=== PATIENT | female | born 1950 | race Caucasian/White ===

== ENCOUNTER 2017-01-31 13:25 | Outpatient (CLI) ==
[2015-02-12 12:35] VITALS: BMI 24.0
== END 2017-01-31 13:26 | disposition home or self-care (01) ==
LOC: CAR 13:25
PROVIDERS: ATTEND Internal Medicine
DX: C34.90 Malignant neoplasm of unspecified part of unspecified bronchus or lung (principal); J44.9 Chronic obstructive pulmonary disease, unspecified; R06.02 Shortness of breath; I10 Essential (primary) hypertension

== ENCOUNTER 2017-03-28 12:36 | Outpatient (RCR) ==
[2015-02-12 12:35] VITALS: BMI 24.0
[2017-04-25 14:17] VITALS: BP 132/58
== END 2017-04-25 ==
LOC: PUL.REHAB 12:36
PROVIDERS: ATTEND Internal Medicine
DX: C34.90 Malignant neoplasm of unspecified part of unspecified bronchus or lung (principal); J44.9 Chronic obstructive pulmonary disease, unspecified; R06.02 Shortness of breath; I10 Essential (primary) hypertension

== ENCOUNTER 2017-04-28 08:04 | Outpatient (RCR) ==
[2015-02-12 12:35] VITALS: BMI 24.0
[2017-05-23 14:36] VITALS: BP 118/60
== END 2017-05-26 ==
LOC: PUL.REHAB 08:04
PROVIDERS: ATTEND Internal Medicine
DX: C34.90 Malignant neoplasm of unspecified part of unspecified bronchus or lung (principal); J44.9 Chronic obstructive pulmonary disease, unspecified; R06.02 Shortness of breath; I10 Essential (primary) hypertension

== ENCOUNTER 2017-05-27 07:22 | Outpatient (RCR) ==
[2015-02-12 12:35] VITALS: BMI 24.0
[2017-06-20 14:32] VITALS: BP 106/52
== END 2017-06-26 ==
LOC: PUL.REHAB 07:22
PROVIDERS: ATTEND Internal Medicine
DX: J44.9 Chronic obstructive pulmonary disease, unspecified (principal); R06.02 Shortness of breath; C34.90 Malignant neoplasm of unspecified part of unspecified bronchus or lung; I10 Essential (primary) hypertension

== ENCOUNTER 2017-06-27 07:50 | Outpatient (RCR) ==
[2015-02-12 12:35] VITALS: BMI 24.0
[2017-07-22 14:15] VITALS: BP 138/58
== END 2017-07-26 ==
LOC: PUL.REHAB 07:50
PROVIDERS: ATTEND Internal Medicine
DX: C34.90 Malignant neoplasm of unspecified part of unspecified bronchus or lung (principal); J44.9 Chronic obstructive pulmonary disease, unspecified; R06.02 Shortness of breath; I10 Essential (primary) hypertension

== ENCOUNTER 2017-08-05 12:34 | Outpatient (CLI) | payer OTHER ==
[2015-02-12 12:35] VITALS: BMI 24.0
--- NOTE | 2017-08-06 11:46 | MAMMO ---
EXAM: Digital screening mammogram with tomosynthesis HISTORY: Screening COMPARISON: 02/08/2015 FINDINGS: Digital MLO and CC views of the right and left breast were performed. Computer aided det ection was utilized. Tomosynthesis was performed. There are scattered fibroglandular densities. Sc attered bilateral benign calcifications. There is no evidence for mass, asymmetry, distortion, or najera spicious calcifications in either breast. IMPRESSION: 1. No evidence of malignancy in the right or left breast. 2. Annual screening mammogram is recommended in one year. BIRADS category 2, benign
== END 2017-08-05 12:35 | disposition home or self-care (01) ==
LOC: RAD 12:34
PROVIDERS: ATTEND Internal Medicine
DX: Z12.31 Encounter for screening mammogram for malignant neoplasm of breast (principal)
CPT/HCPCS: 77067

== ENCOUNTER 2017-08-27 09:02 | Outpatient (RCR) ==
[2015-02-12 12:35] VITALS: BMI 24.0
[2017-09-09 14:28] VITALS: BP 128/60
== END 2017-09-25 ==
LOC: PUL.REHAB 09:02
PROVIDERS: ATTEND Internal Medicine
DX: C34.90 Malignant neoplasm of unspecified part of unspecified bronchus or lung (principal); J44.9 Chronic obstructive pulmonary disease, unspecified; R06.02 Shortness of breath; I10 Essential (primary) hypertension

== ENCOUNTER 2017-09-26 07:05 | Outpatient (RCR) ==
[2015-02-12 12:35] VITALS: BMI 24.0
[2017-10-17 09:40] VITALS: BP 128/60
== END 2017-10-26 ==
LOC: PUL.REHAB 07:05
PROVIDERS: ATTEND Internal Medicine
DX: C34.90 Malignant neoplasm of unspecified part of unspecified bronchus or lung (principal); J44.9 Chronic obstructive pulmonary disease, unspecified; I10 Essential (primary) hypertension; R06.02 Shortness of breath

== ENCOUNTER 2017-10-28 07:28 | Outpatient (RCR) ==
[2015-02-12 12:35] VITALS: BMI 24.0
== END 2017-10-28 07:50 | disposition home or self-care (01) ==
LOC: PUL.REHAB 07:28
PROVIDERS: ATTEND Internal Medicine
DX: C34.90 Malignant neoplasm of unspecified part of unspecified bronchus or lung (principal); J44.9 Chronic obstructive pulmonary disease, unspecified; R06.02 Shortness of breath; I10 Essential (primary) hypertension

== ENCOUNTER 2017-10-29 11:15 | Outpatient (RCR) | payer OTHER ==
[2015-02-12 12:35] VITALS: BMI 24.0
[2017-11-24 09:55] VITALS: BP 126/52
== END 2017-11-26 ==
LOC: PUL.REHAB 11:15
PROVIDERS: ATTEND Internal Medicine
DX: J44.9 Chronic obstructive pulmonary disease, unspecified (principal)
CPT/HCPCS: 93797

== ENCOUNTER 2017-11-27 06:43 | Outpatient (RCR) ==
[2015-02-12 12:35] VITALS: BMI 24.0
[2017-12-19 11:01] VITALS: BP 132/56
== END 2017-12-24 ==
LOC: PUL.REHAB 06:43
PROVIDERS: ATTEND Internal Medicine
DX: C34.90 Malignant neoplasm of unspecified part of unspecified bronchus or lung (principal); J44.9 Chronic obstructive pulmonary disease, unspecified; I10 Essential (primary) hypertension; R06.02 Shortness of breath

== ENCOUNTER 2017-12-25 08:26 | Outpatient (RCR) ==
[2015-02-12 12:35] VITALS: BMI 24.0
[2018-01-16 14:19] VITALS: BP 116/54
== END 2018-01-24 ==
LOC: PUL.REHAB 08:26
PROVIDERS: ATTEND Internal Medicine
DX: J44.9 Chronic obstructive pulmonary disease, unspecified (principal)

== ENCOUNTER 2018-01-26 07:07 | Outpatient (RCR) ==
[2015-02-12 12:35] VITALS: BMI 24.0
[2018-02-20 11:06] VITALS: BP 138/58
== END 2018-02-23 23:59 ==
LOC: PUL.REHAB 07:07
PROVIDERS: ATTEND Internal Medicine
DX: C34.90 Malignant neoplasm of unspecified part of unspecified bronchus or lung (principal); J44.9 Chronic obstructive pulmonary disease, unspecified; R06.02 Shortness of breath; I10 Essential (primary) hypertension

== ENCOUNTER 2018-02-06 12:36 | Outpatient (CLI) | payer OTHER ==
[2015-02-12 12:35] VITALS: BMI 24.0
== END 2018-02-06 12:37 | disposition home or self-care (01) ==
LOC: CAR 12:36
PROVIDERS: ATTEND Internal Medicine
DX: J42 Unspecified chronic bronchitis (principal); R06.02 Shortness of breath
CPT/HCPCS: 94761

== ENCOUNTER 2018-02-24 08:27 | Outpatient (RCR) ==
[2015-02-12 12:35] VITALS: BMI 24.0
[2018-03-16 14:43] VITALS: BP 120/58
== END 2018-03-26 23:59 ==
LOC: PUL.REHAB 08:27
PROVIDERS: ATTEND Internal Medicine
DX: C34.90 Malignant neoplasm of unspecified part of unspecified bronchus or lung (principal); J44.9 Chronic obstructive pulmonary disease, unspecified; I10 Essential (primary) hypertension; R06.02 Shortness of breath

== ENCOUNTER 2018-03-27 07:46 | Outpatient (RCR) ==
[2015-02-12 12:35] VITALS: BMI 24.0
[2018-04-17 14:27] VITALS: BP 140/58
== END 2018-04-25 23:59 ==
LOC: PUL.REHAB 07:46
PROVIDERS: ATTEND Internal Medicine
DX: C34.90 Malignant neoplasm of unspecified part of unspecified bronchus or lung (principal); J44.9 Chronic obstructive pulmonary disease, unspecified; R06.02 Shortness of breath; I10 Essential (primary) hypertension

== ENCOUNTER 2018-04-27 07:12 | Outpatient (RCR) ==
[2015-02-12 12:35] VITALS: BMI 24.0
[2018-05-25 10:02] VITALS: BP 136/56
== END 2018-05-26 23:59 ==
LOC: PUL.REHAB 07:12
PROVIDERS: ATTEND Internal Medicine
DX: J44.9 Chronic obstructive pulmonary disease, unspecified (principal)

== ENCOUNTER 2018-05-27 07:31 | Outpatient (RCR) ==
[2015-02-12 12:35] VITALS: BMI 24.0
[2018-06-15 09:59] VITALS: BP 128/56
== END 2018-06-26 23:59 ==
LOC: PUL.REHAB 07:31
PROVIDERS: ATTEND Internal Medicine
DX: J44.9 Chronic obstructive pulmonary disease, unspecified (principal)

== ENCOUNTER 2018-06-30 07:24 | Outpatient (RCR) ==
[2015-02-12 12:35] VITALS: BMI 24.0
== END 2018-07-26 23:59 ==
LOC: PUL.REHAB 07:24
PROVIDERS: ATTEND Internal Medicine
DX: J44.9 Chronic obstructive pulmonary disease, unspecified (principal)

== ENCOUNTER 2018-07-27 08:07 | Outpatient (RCR) ==
[2015-02-12 12:35] VITALS: BMI 24.0
[2018-08-24 14:21] VITALS: BP 124/54
== END 2018-08-26 23:59 ==
LOC: PUL.REHAB 08:07
PROVIDERS: ATTEND Internal Medicine
DX: J44.9 Chronic obstructive pulmonary disease, unspecified (principal)

== ENCOUNTER 2018-08-20 09:58 | Outpatient (CLI) | payer OTHER ==
[2015-02-12 12:35] VITALS: BMI 24.0
--- NOTE | 2018-08-21 09:17 | MAMMO ---
EXAM: Bilateral digital screening mammogram (2-D and 3-D) History: Screening Comparison: Bilateral mammogram 08/05/2017 Findings: MLO and CC views of bilateral breasts demonstrate scattered fibroglandular breast parenchy ma. CAD was reviewed by the radiologist. Tomosynthesis was performed. Stable benign bilateral anna st calcifications. There are no dominant masses, no suspicious microcalcifications and no architectu ral distortions. Impression: Benign stable mammogram. Recommend followup routine screening mammography in 1 year. BIRADS 2
== END 2018-08-20 09:59 | disposition home or self-care (01) ==
LOC: RAD 09:58
PROVIDERS: ATTEND Internal Medicine
DX: Z12.31 Encounter for screening mammogram for malignant neoplasm of breast (principal)
CPT/HCPCS: 77067

== ENCOUNTER 2018-09-28 07:46 | Outpatient (RCR) ==
[2015-02-12 12:35] VITALS: BMI 24.0
[2018-10-15 10:41] VITALS: BP 128/52
== END 2018-10-26 23:59 ==
LOC: PUL.REHAB 07:46
PROVIDERS: ATTEND Internal Medicine
DX: J44.9 Chronic obstructive pulmonary disease, unspecified (principal)

== ENCOUNTER 2018-10-28 07:53 | Outpatient (RCR) ==
[2015-02-12 12:35] VITALS: BMI 24.0
[2018-11-23 14:26] VITALS: BP 132/58
== END 2018-11-26 23:59 ==
LOC: PUL.REHAB 07:53
PROVIDERS: ATTEND Internal Medicine
DX: J44.9 Chronic obstructive pulmonary disease, unspecified (principal)

== ENCOUNTER 2018-11-27 13:21 | Outpatient (RCR) ==
[2018-11-30 12:51] VITALS: TEMP 208; BMI 25.3
[2018-12-21 14:36] VITALS: BP 122/54
== END 2018-12-24 23:59 ==
LOC: CAR.REHAB 13:21
PROVIDERS: ATTEND Nurse Practitioner Gerontology
DX: I50.21 Acute systolic (congestive) heart failure (principal)
CPT/HCPCS: 93798

== ENCOUNTER 2018-12-25 06:46 | Outpatient (RCR) ==
[2019-01-22 14:47] VITALS: BP 118/54
== END 2019-01-24 23:59 ==
LOC: CAR.REHAB 06:46
PROVIDERS: ATTEND Nurse Practitioner Gerontology
DX: I50.21 Acute systolic (congestive) heart failure (principal)
CPT/HCPCS: 93798

== ENCOUNTER 2019-01-25 08:58 | Outpatient (RCR) ==
[2019-02-22 08:58] VITALS: BP 116/52
== END 2019-02-23 23:59 ==
LOC: PUL.REHAB 08:58
PROVIDERS: ATTEND Internal Medicine
DX: I50.21 Acute systolic (congestive) heart failure (principal)
CPT/HCPCS: 93798

== ENCOUNTER 2019-02-24 07:19 | Outpatient (RCR) ==
[2019-03-26 14:37] VITALS: BP 106/54
== END 2019-03-26 23:59 ==
LOC: CAR.REHAB 07:19
PROVIDERS: ATTEND Internal Medicine
DX: I50.21 Acute systolic (congestive) heart failure (principal)
CPT/HCPCS: 93798

== ENCOUNTER 2019-03-27 09:22 | Outpatient (RCR) | payer OTHER ==
[2019-04-21 14:44] VITALS: BP 128/58
== END 2019-04-21 15:02 | disposition home or self-care (01) ==
LOC: CAR.REHAB 09:22
PROVIDERS: ATTEND Internal Medicine
DX: I50.21 Acute systolic (congestive) heart failure (principal)
CPT/HCPCS: 93798

== ENCOUNTER 2019-05-27 09:31 | Outpatient (RCR) ==
[2019-06-16 14:17] VITALS: BP 128/56
== END 2019-06-26 23:59 ==
LOC: CAR.REHAB 09:31
PROVIDERS: ATTEND Internal Medicine
DX: I50.20 Unspecified systolic (congestive) heart failure (principal); J44.9 Chronic obstructive pulmonary disease, unspecified
CPT/HCPCS: 93797